=== PATIENT | male | born 1975 | race Caucasian/White ===

== ENCOUNTER 2017-10-08 10:45 | Emergency (ER) | payer MEDICARE, MEDICAID ==
[2017-10-08 12:34] VITALS: BP 160/108
[2017-10-08] MEDS ORDERED: Triamcinolone Acetonide* 40 MG/ML 1 ML VIAL INTRAARTIC ONE (12:59)
[2017-10-08] MEDS ORDERED: Lidocaine 1% MPF* 2 ML VIAL INJ ONE (12:59)
--- NOTE | 2017-10-08 12:59 | UC ---
Lower Extremity/Ankle HPI - HPI Summary HPI Summary: C/O bilateral LE swelling x 1 week. Got better with stopping magnesium and meloxicam. - History of Current Complaint Chief Complaint: UCBackPain Stated Complaint: SWELLING IN BOTH LEGS Time Seen by Provider: 10/08/17 12:50 Hx Obtained From: Patient Onset/Duration: Gradual Onset, Lasting Weeks - 1, Resolved Severity Initially: Mild Severity Currently: None Pain Intensity: 8 Alleviating Factor(s): Rest Able to Bear Weight: Yes - Allergies/Home Medications Allergies/Adverse Reactions: Allergies Allergy/AdvReac Type Severity Reaction Status Date / Time No Known Allergies Allergy Verified 10/08/17 12:35 Home Medications: Home Medications Cholecalciferol TAB* [Vitamin D TAB*] 400 unit PO DAILY 10/08/17 [History Confirmed 10/08/17] Coconut Oil 120 ml MC DAILY 10/08/17 [History Confirmed 10/08/17] Devil's Claw Extract [Devil's Claw] 10 gm MC QAM 10/08/17 [History Confirmed 11/20] Sarah Root 1 dose MC DAILY 10/08/17 [History Confirmed 10/08/17] Magnesium Oxide [Magnesium] 250 mg PO QAM 10/08/17 [History Confirmed 10/08/17] Turmeric/Turmeric Root Extract [Turmeric 500 mg Capsule] 2 each PO QAM 10/08/17 [History Confirmed 10/08/17] PMH/Surg Hx/FS Hx/Imm Hx Cardiovascular History: Hypertension - Surgical History Surgical History: None - Family History Known Family History: Positive: Hypertension - Social History Occupation: Disabled Lives: With Family Alcohol Use: Rare Substance Use Type: Marijuana Substance Use Comment - Amount & Last Used: 10/08/17 Smoking Status (MU): Former Smoker Type: Cigarettes Amount Used/How Often: 2004 Review of Systems Musculoskeletal: Arthralgia, Edema, Myalgia Is Patient Immunocompromised?: No All Other Systems Reviewed And Are Negative: Yes Physical Exam Triage Information Reviewed: Yes Appearance: Well-Appearing, Well-Nourished, Pain Distress - moderate to severe Vital Signs: Initial Vital Signs Temp 99.2 F 10/08/17 12:15 Pulse 80 10/08/17 12:15 Resp 18 10/08/17 12:15 BP 160/108 10/08/17 12:15 Pulse Ox 98 10/08/17 12:15 Vital Signs Reviewed: Yes Eyes: Positive: Conjunctiva Clear Neck exam: Normal Respiratory Exam: Normal Cardiovascular Exam: Normal Musculoskeletal: Positive: No Edema, ROM Limited @ - Lumbosacral. Tenderness Left SI joint. Neurological: Positive: Alert Psychological Exam: Normal Skin Exam: Normal Procedures - Procedure Summary Procedure Summary: Injection left SI: Time out done. Patient advised of risk for infection and nerve injury. Betadine prep. 7 cc injected in 3 points along the SI joint. 1cc kenalog 40, 3cc each 1% lidocaine and 0.25% bupivicaine. Patient tolerated the procedure well and did have improvement in pain in the SI region Lower Extremity Course/Dx - Differential Dx/Diagnosis Differential Diagnosis/HQI/PQRI: Arthritis, Sprain, Strain, Tendonitis Provider Diagnoses: Localized edema. Hypertension. Sacroiliitis Discharge - Sign-Out/Discharge Documenting (check all that apply): Discharge/Admit/Transfer - Discharge Plan Condition: Stable Disposition: HOME Prescriptions: Atenolol TAB* 25 mg PO DAILY #30 Lotrel 10/20mg 1 tab PO DAILY #30 Patient Education Materials: Sacroiliitis (ED), Sacroiliac Joint Injection (DC) , Leg Edema (ED) Referrals: No Primary Care Phys,NOPCP [Primary Care Provider] - Additional Instructions: Watch for signs of infection. Salt is the main cause of the swelling in the legs. - Billing Disposition and Condition Condition: STABLE Disposition: HOME
[2017-10-08] MEDS ORDERED: Bupivacaine 0.25% SDV* 30 ML INJ ONE (13:00)
[2017-10-08] MEDS ORDERED: Bupivacaine 0.25% SDV* 30 ML ONE (13:03)
== END 2017-10-08 13:45 | disposition home or self-care (01) ==
LOC: UCCORT 10:45
DX: R60.9 Edema, unspecified (principal); I10 Essential (primary) hypertension; M46.1 Sacroiliitis, not elsewhere classified; Z87.891 Personal history of nicotine dependence
CPT/HCPCS: 20605; 99212; G0463; J3301

== ENCOUNTER 2018-12-02 15:18 | Emergency (ER) | payer MEDICARE, MEDICAID | END 2018-12-02 15:31 | disposition left against medical advice (07) | LOC: UCCORT 15:18 | DX: M25.562 Pain in left knee (principal); M25.561 Pain in right knee; Z53.21 Procedure and treatment not carried out due to patient leaving prior to being seen by health care provider; Z87.39 Personal history of other diseases of the musculoskeletal system and connective tissue ==